=== PATIENT | female | born 1980 | race Caucasian/White ===

== ENCOUNTER 2017-02-10 22:35 | Emergency (ER) | payer BC | END 2017-02-11 04:32 | disposition home or self-care (01) | LOC: ER1 22:35 | DX: S93.402A Sprain of unspecified ligament of left ankle, initial encounter (principal); Y93.01 Activity, walking, marching and hiking; Y92.009 Unspecified place in unspecified non-institutional (private) residence as the place of occurrence of the external cause | CPT/HCPCS: 73610; 73630; 96372; 99283; J1885 ==